=== PATIENT | male | born 1950 | race Caucasian/White ===

== ENCOUNTER → 2023-08-19 | Outpatient (CLI) | payer MEDICARE ==
[2023-08-19 13:31] LABS: Basophils # (A) 0.04 X 10*3/uL (0.00-0.10); Basophils % (A) 0.6 %; Eosinophils # (A) 0.22 X 10*3/uL (0.04-0.35); Eosinophils % (A) 3.2 %; HCT 52.8 % (39.6-50.0); HGB 17.7 g/dL (13.0-17.0); Lymphocytes # (A) 2.36 X 10*3/uL (0.90-5.00); Lymphocytes % (A) 34.8 %; MCH 30.8 pg (27.0-32.0); MCHC 33.5 g/dL (32.0-37.0); Mean Platelet Volume 10.6 FL (9.5-12.2); Monocytes # (A) 0.53 X 10*3/uL (0.20-1.00); Monocytes % (A) 7.8 %; NRBC Per 100 WBC 0 X 10*3/uL (0.00-0.01); Neutrophils # (A) 3.61 X 10*3/uL (1.80-7.70); Neutrophils % (A) 53.3 %; Platelet Count 224 X 10*3/uL (140-440); RBC 5.74 X 10*6/uL (4.40-5.60); RDW 12.6 % (11.5-14.5); WBC 6.78 X 10*3/uL (4.50-10.00)
== END | disposition home or self-care (01) ==
LOC: LABWHC1 07:38
PROVIDERS: ATTEND Surgery
DX: Z01.818 Encounter for other preprocedural examination (principal); I45.10 Unspecified right bundle-branch block; R94.31 Abnormal electrocardiogram [ECG] [EKG]
CPT/HCPCS: 85025; 86850; 86900; 86901; 93005

== ENCOUNTER 2023-08-29 05:51 | Day surgery (SDC) | payer MEDICARE ==
[2023-08-25 15:31] VITALS: BMI 27.7
[~2023-08-29 05:51] MED LIST: ACETAMINOPHEN TAB 500 MG TAB PO PRN; HEPARIN SODIUM,PORCINE/PF 5,000 UNIT/0.5 ML SYRINGE SQ PRN
[2023-08-29] MEDS ORDERED: ONDANSETRON 4 MG/2 ML VIAL IVP ONE (05:56)
[2023-08-29] MEDS ORDERED: DEXAMETHASONE SOD PHOSPHATE 4 MG/ML 1 ML VIAL IV ONE (05:56)
[2023-08-29] MEDS ORDERED: LIDOCAINE 1% (10MG/ML) FOR IV START INTRADERMA PRN (05:56)
[2023-08-29] MEDS ORDERED: HYDROmorphone 0.5 MG/0.5 ML SYRINGE IVP PRN (05:56)
[2023-08-29] MEDS ORDERED: MIDAZOLAM 2 MG/2 ML VIAL IV PRN (05:56)
[2023-08-29] MEDS ORDERED: LACTATED RINGERS 1,000 ML IV SCH (05:56)
[2023-08-29 07:09] VITALS: TEMP 97.9
[2023-08-29] MEDS ORDERED: NEOSTIGMINE 1 MG/ML 10 ML VIAL ONE (07:24)
[2023-08-29] MEDS ORDERED: MIDAZOLAM 2 MG/2 ML VIAL ONE (07:24)
[2023-08-29] MEDS ORDERED: HYDROmorphone (PF) 1 MG/ML ONE (07:24)
[2023-08-29] MEDS ORDERED: PROPOFOL 10 MG/ML 20 ML VIAL IV ONE (07:24)
[2023-08-29] MEDS ORDERED: SUCCINYLCHOLINE CHLORIDE 200 MG/10 ML VIAL IV ONE (07:24)
[2023-08-29] MEDS ORDERED: fentaNYL (PF) 50 MCG/ML 2 ML AMP ONE (07:24)
[2023-08-29] MEDS ORDERED: GLYCOPYRROLATE 0.2 MG/ML 2 ML VIAL ONE (07:24)
[2023-08-29] MEDS ORDERED: TAMSULOSIN 0.4 MG CAP.ER.24H PO ONE (07:24)
[2023-08-29] MEDS ORDERED: ROCURONIUM 10 MG/ML (5 ML VIAL) IV ONE (07:24)
[2023-08-29] MEDS ORDERED: LIDOCAINE 1% INJ 10MG/ML (20 ML MDV) ONE (07:24)
[2023-08-29] MEDS ORDERED: PHENYLEPHRINE-0.9% NACL SYG 1,000 MCG/10 ML SYRINGE ONE (07:24)
--- NOTE | 2023-08-29 07:25 | P.GSHP ---
History of Present Illness H&P Date: 08/29/23 Chief Complaint: Right inguinal hernia 73-year-old male here for right inguinal hernia repair. Patient with complaints of bulging right groin. Increasing in size. Mild pain. CAT scan showed bilateral inguinal hernia however left inguinal hernia nonpalpable. No symptoms on the left. Past Medical History Past Medical History: No Reported History History of Any Multi-Drug Resistant Organisms: None Reported Additional Past Surgical History / Comment(s): COLONOSCOPY Past Anesthesia/Blood Transfusion Reactions: No Reported Reaction Additional Past Anesthesia/Blood Transfusion Reaction / Comment(s): PT HAS NEVER HAD GENERAL ANESTH. Past Psychological History: No Psychological Hx Reported Smoking Status: Never smoker Past Alcohol Use History: None Reported Past Drug Use History: None Reported - Past Family History Mother Additional Family Medical History / Comment(s): ENLARGED HEART Medications and Allergies Home Medications Medication Instructions Recorded Confirmed Type No Known Home Medications 08/25/23 08/25/23 History Allergies Allergy/AdvReac Type Severity Reaction Status Date / Time Penicillins Allergy Rash/Hives Verified 08/29/23 06:40 Surgical - Exam Vital Signs Temp Pulse Resp BP Pulse Ox 97.9 F 88 16 156/94 98 08/29/23 06:38 08/29/23 06:38 08/29/23 06:38 08/29/23 06:38 08/29/23 06:38 Physical exam: General: Well-developed, well-nourished HEENT: Normocephalic, sclerae nonicteric Abdomen: Nontender, nondistended, moderate sized right inguinal hernia Extremities: No edema Neuro: Alert and oriented Assessment and Plan (1) Right inguinal hernia Narrative/Plan: Will proceed with laparoscopic da Rolando assisted repair right inguinal hernia with mesh, possible open, possible bilateral. Risks of bleeding, infection, recurrence, bladder and bowel injury, numbness, nerve injury, conversion to an open procedure were discussed with the patient. The patient understands and wishes to proceed. Current Visit: Yes Status: Acute Code(s): K40.90 - UNIL INGUINAL HERNIA, W/O OBST OR GANGR, NOT SPCF RECUR SNOMED Code(s): 879784390
[2023-08-29] MEDS ORDERED: BUPIVACAINE (PF) 0.25% 30 ML VIAL SQ ONE ×2 (07:58)
[2023-08-29] MEDS ORDERED: LACTATED RINGERS 1,000 ML IV ONE (09:17)
[2023-08-29] MEDS ORDERED: ONDANSETRON 4 MG/2 ML VIAL IVP PRN (09:24)
--- NOTE | 2023-08-29 09:28 | P.OP ---
Date of Procedure: 08/29/23 Procedure(s) Performed: PREOPERATIVE DIAGNOSIS: Right inguinal hernia POSTOPERATIVE DIAGNOSIS: Large indirect right inguinal hernia PROCEDURE: Laparoscopic da Rolando assisted repair right inguinal hernia with mesh SURGEON: Dr. Najera ANESTHESIA: General OPERATIVE PROCEDURE DETAILS: Patient was placed in the operating table in the supine position. The patient was placed under general anesthesia. The abdomen was prepped and draped in usual sterile fashion. A small curvilinear supraumbilical incision was made. The fascia was retracted anteriorly with Dyke forceps. The Veress needle was inserted. The saline drop test was normal. Insufflation took place to 15 mmHg. An 8 mm trocar was placed into the peritoneal cavity. 2 additional 8 mm trochars were placed in the right upper quadrant and left upper quadrant under visualization. The robotic arms were then brought in and docked into place. The fenestrated bipolar was used in the left arm and the laparoscopic keyonna was utilized in the right arm. A 30 8 mm scope was used in the up position. The peritoneal cavity was inspected. The patient had a large indirect hernia on the right hand side. No hernia was seen on the left. The peritoneum was incised in a horizontal fashion cephalad to the internal inguinal ring. Following that careful dissection of the preperitoneal space took place. This took place using both electrocautery, sharp dissection but primarily blunt dissection. Visualization of the pubic tubercle and Isidro's ligament took place medially. Full dissection took place laterally as well. The large hernia sac was fully dissected. Once we had adequate space the [id number] Progrip mesh was advanced into the preperitoneal space and flattened out appropriately to cover all potential hernia sites. This was sutured medially to Isidro's ligament extending to the pubic tubercle and then superiorly along the midline using a 30 absorbable be locked suture. The peritoneal defect was then closed using a absorbable 2-0 VLok suture. The hernia sac was incorporated into the peritoneal closure to help prevent future recurrence. The pneumoperitoneum was then evacuated. The skin of all 3 sites was closed using a 4-0 Monocryl stitch. Skin glue was then applied. TYPE OF MESH USED: Progrip LOCATION OF MESH: Sub-lay FIXATION: 30V LOC PREOPERATIVE DISCUSSION ON SMOKING CESSASTION: Yes PREOPERATIVE DISCUSSION ON MORBID OBESITY: Yes PREOPERATIVE DISCUSSION ON APPROPRIATE USE OF NARCOTIC USE: Yes PREOPERATIVE EDUCATION: Multi Modal, Smoking Cessation and Weight Loss with BMI over 35. DISPOSITION: Stable to recovery room
[2023-08-29 10:50] VITALS: RESP 18
[2023-08-29 12:39] VITALS: BP 131/80; PULSE 67
[2023-08-29] MEDS ORDERED: ACETAMINOPHEN TAB 325 MG TAB PO SCH (13:00)
[2023-08-29] MEDS ORDERED: IBUPROFEN 600 MG TAB PO SCH (16:00)
== END 2023-08-29 12:28 | disposition home or self-care (01) ==
LOC: OR 05:51
PROVIDERS: ATTEND Surgery
DX: K40.90 Unilateral inguinal hernia, without obstruction or gangrene, not specified as recurrent (principal); Z88.0 Allergy status to penicillin; Z98.890 Other specified postprocedural states
CPT/HCPCS: 49650; S2900

== ENCOUNTER 2023-12-12 08:12 | Day surgery (SDC) | payer MEDICARE ==
[2023-12-12 09:46] VITALS: RESP 16; TEMP 98.2
[2023-12-12 10:31] VITALS: BP 131/83; PULSE 68
--- NOTE | 2023-12-12 10:47 | US ---
EXAMINATION TYPE: US guided soft tissue drainage DATE OF EXAM: 12/12/2023 10:17 AM CLINICAL INDICATION:Male, 73 years old with history of R10.30 LOWER ABDOMINAL PAIN K40.90 UNIL INGUIN AL H; , [facility] COMPARISON: None TECHNIQUE: Ultrasound guided fluid aspiration. PROCEDURE: Informed consent was obtained. Risks including bleeding, infection, damage to surrounding structures, and the potential need for further procedures as well as benefits were explained. All patient questi ons were answered. Initial ultrasound images were taken which showed safest access to fluid collection located at the [facility] groin. The patient was prepped and draped. Under sterile technique with 1% lidocaine local anest hesia a 5-[place]or[place] one-step needle/catheter was inserted under ultrasound guidance. The patient tolera hannah the procedure well without complication. The patient was transferred to recovery in stable condit ion. IMPRESSION: Successful ultrasound fluid aspiration of the right groin..
== END 2023-12-12 10:26 | disposition home or self-care (01) ==
LOC: RADPROMAIN 08:12
PROVIDERS: ATTEND Surgery
DX: K40.90 Unilateral inguinal hernia, without obstruction or gangrene, not specified as recurrent (principal)
CPT/HCPCS: 10030; 76942